=== PATIENT | male | born 1975 | race Caucasian/White ===

== ENCOUNTER 2016-10-31 16:15 | Emergency (ER) | payer OTHER ==
[2016-10-31] MEDS ORDERED: DEXAMETHASONE 4 MG TAB PO ONE (17:37)
[2016-10-31] MEDS ORDERED: DIAZEPAM 10 MG/2 ML SYR IM ONE ×2 (17:38→19:20)
[2016-10-31] MEDS ORDERED: KETOROLAC 30 MG/1 ML SDV IM ONE (17:39)
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
[2016-10-31] MEDS ORDERED: KETAMINE 100 MG/10 ML SYR IVP ONE (20:20)
[2016-10-31 20:45] VITALS: RESP 18
[2016-10-31 21:34] VITALS: BP 121/73; PULSE 76; TEMP 97.7; O2SAT 94
== END 2016-10-31 21:34 | disposition home or self-care (01) ==
DX: M54.16 Radiculopathy, lumbar region (principal)
CPT/HCPCS: 96374; J1885